=== PATIENT | male | born 1970 | race Caucasian/White ===

== ENCOUNTER 2016-12-05 07:38 | Observation (INO) ==
[2016-12-05] MEDS ORDERED: *HR* Promethazine 25 MG/ML VIAL IVP PRN ×3 (09:11→18:18)
[2016-12-05] MEDS ORDERED: Naloxone 0.4 MG/ML INJ IVP PRN ×2 (09:11→18:18)
[2016-12-05] MEDS ORDERED: Ondansetron 4 MG/2 ML VIAL IVP PRN ×2 (09:11→18:18)
[2016-12-05] MEDS ORDERED: *HR* HYDROmorphone (PF) 1 MG/ML SYRINGE IVP PRN ×2 (09:11→18:18)
[2016-12-05] MEDS ORDERED: Ketorolac 15 MG/ML VIAL IVP PRN ×2 (09:11→18:18)
[2016-12-05] MEDS ORDERED: 0.9 % Sodium Chloride 1,000 ML IVC SCH ×2 (09:15→18:18)
[2016-12-05] MEDS: *HR* Morphine 2 MG/ML SYRINGE IVP PRN ×2 (10:02→13:54)
--- NOTE | 2016-12-05 12:56 | Urology History & Physical ---
Date of Encounter: 12/05/16 Time of Encounter: 12:54 History of Present Illness Chief complaint: flank pain. HPI: Mr. Mendieta is a 45 year old male transferred from [facility] after 2 visits. 4 mm distal ureteral stone. +strep culture. still with pain but not as severe. no fever. hx of stones Past Med Surg Social Fam HX - Past Medical History Medical history: kidney stones Psychiatric history: no psych history - Past Surgical History Surgical History: orthopedic, other - Social History Smoking Status: Never smoker Smokeless Tobacco Status: Yes Alcohol use: occasionally Drug use: none Medications and Allergies HYDROcodone/Acet 5/325 mg [[place] 5-325 mg] 1 tab PO Q6H #14 tab 12/03/16 [Rx] Ondansetron ODT [Zofran ODT] 4 mg SL Q6HR #24 tab.rapdis 12/03/16 [Rx] Multivitamin [Multi-Day Vitamins] 1 each PO DAILY 12/05/16 [History] 3 Allergy/AdvReac Type Severity Reaction Status Date / Time No Known Allergies Allergy Verified 12/05/16 06:24 Review of Systems - Constitutional fatigue, no chills, no fever(s) - EENT Nose, mouth and throat: no dizziness - Cardiovascular no chest pain - Respiratory no cough - Gastrointestinal abdominal pain, nausea - Genitourinary flank pain - Musculoskeletal back pain - Integumentary no erythema - Neurological no confusion - Psychiatric no anxiety - Hematologic/Lymphatic no easy bleeding - Allergic/Immunologic no throat swelling Exam Initial Vital Signs Temp Pulse Resp BP Pulse Ox 98.2 F 57 18 126/73 93 12/05/16 09:18 12/05/16 09:18 12/05/16 09:18 12/05/16 09:18 12/05/16 09:18 - General physical appearance Present: well developed, no distress - Eyes Present: PERRL - ENT Present: normal nares - Neck Present: no masses - Respiratory Present: normal respiratory effort - Cardiovascular Cardiovascular exam IM: RRR - Abdomen Abdomen: Present: soft - Integumentary Present: no rash Urology Results - Labs All other labs normal.
[2016-12-05] MEDS ORDERED: Lidocaine -MPF 2% 2 ML VIAL ONE (15:08)
[2016-12-05] MEDS ORDERED: *HR* Propofol 200 MG/20 ML VIAL IVP ONE (15:08)
[2016-12-05] MEDS ORDERED: Dexamethasone 4 MG/ML VIAL ONE (15:08)
[2016-12-05] MEDS ORDERED: *HR* FentaNYL (PF) 100 MCG/2 ML VIAL ONE (15:08)
[2016-12-05] MEDS ORDERED: *HR* Midazolam HCl 2 MG/2 ML VIAL ONE (15:08)
[2016-12-05] MEDS ORDERED: Ondansetron 4 MG/2 ML VIAL ONE (15:08)
--- NOTE | 2016-12-05 15:31 | Anesthesia Evaluation PreOp ---
Date of Encounter: 12/05/16 Time of Encounter: 15:29 - Past History Planned Operation: Right Ureteroscopic Stone Extraction Cardiac History: Denies any Significant Hx Pulmonary History: Denies Any Significant HX OCCUPATIONAL THERAPIST AIDE History: Denies Any Significant HX Other Medical History: Other (obesity BMI=41.5) Anesthesia History: No Prior Anesthetic Complications, Past Anesthesia Alcohol Use: occasionally Drug use: none Medications and Allergies HYDROcodone/Acet 5/325 mg [[place] 5-325 mg] 1 tab PO Q6H #14 tab 12/03/16 [Rx] Ondansetron ODT [Zofran ODT] 4 mg SL Q6HR #24 tab.rapdis 12/03/16 [Rx] Multivitamin [Multi-Day Vitamins] 1 each PO DAILY 12/05/16 [History] 3 Allergy/AdvReac Type Severity Reaction Status Date / Time No Known Allergies Allergy Verified 12/05/16 06:24 - Meds/Allergy Pre-op Review Medications Reviewed: Yes Allergies Reviewed: Yes Beta Blockers on Current Med List: No Anesthesia Results - Labs Laboratory Tests 12/05/16 12/05/16 06:40 06:40 WBC 19.1 H Hgb 15.2 Hct 44.7 Plt Count 237 Sodium 142 Potassium 5.3 H BUN 14 Creatinine 1.41 H Anesthesia Exam Vital Signs/O2 Sat, Most Current Temp Pulse Resp BP Pulse Ox 98.2 F 54 20 127/75 98 12/05/16 10:57 12/05/16 10:57 12/05/16 10:57 12/05/16 10:57 12/05/16 10:57 Height: 5'11''/1.8 m Weight: 297 lbs/135 kg NPO (# of Hours): 8 Pain Scale: 3 (right flank) Pain Scale Used: Numeric (1 - 10) - HEENT Pupil (Motor): EOMI Mallampati: III Teeth: Normal Oral Opening: Greater than 3 - OCCUPATIONAL THERAPIST AIDE LOC: Oriented OCCUPATIONAL THERAPIST AIDE Motor: Normal RUE, Normal LUE, Normal RLE, Normal LLE, Normal Face OCCUPATIONAL THERAPIST AIDE Sensory: Normal: RUE, LUE, RLE, LLE, Face - Cardiac Rhythm: Regular Murmur: None - Pulmonary Breath Sounds: bilateral Clear Respiratory Effort: Symmetrical Anesthesia Assess/Plan ASA Score: 3 Modified [place] Scale for Level of Consciousness: Cooperative, oriented, and tranquil Anesthetic Plan: General Monitoring Plan: Standard Monitors Recovery Plan: PACU
[2016-12-05] MEDS ORDERED: *HR* Morphine 2 MG/ML SYRINGE IVP PRN ×2 (16:26→18:18)
--- NOTE | 2016-12-05 16:54 | Operative Note ---
Date of procedure: 12/05/16 Pre-op diagnosis: right distal ureteral stone 4 mm Post-op diagnosis: same Procedure: Right ureteroscopic stone extraction with holmium laser Right retrograde pyelogram Right ureteral stent placement Anesthesia: GETA Surgeon: Garo Navarro Estimated blood loss (cc): 0 Specimen: Right ureteral stone Condition: stable Disposition: PACU Procedure in Detail: PROCEDURE IN DETAIL: Patient was taken back to the operating room, positioned supine on the operating table. Anesthesia was applied without complication. They were moved into dorsal lithotomy. Careful attention was maintained to cushion all pressure points for patient's safety. They were prepped and draped in sterile fashion. Time-out was performed with the proper patient and procedure. A 17-[place] rigid cystoscope was inserted into the bladder without difficulty. Systematic examination of bladder revealed no abnormalities. The ureteral orifice was cannulated using a 5-[place] Citizen ureteral Catheter and a retrograde pyelogram was performed using Isovue. A filling defect was identified which corresponded to the stone. At that point, a zip wire was placed through the 5-[place] Citizen and confirmed in the renal pelvis with fluoroscopy. A semi-rigid ureteroscope was carefully inserted into the bladder and guided into the ureteral oriface. At that point, the stone was encountered and I felt that it required fragmentation for safe extraction. A 200 micron holmium laser fiber on a setting of 8 and 800 was used to fragment the stone into multiple pieces. The fragments were individually basketed out of the ureter with a 1.9 tipless basket. All stone in the ureter was removed. A 4.8 x 26 ureteral stent was placed over the zip wire under fluoroscopy without complication. The bladder was drained along with the stone fragments. They were collected and sent for stone analysis. The string was left attached to the stent and secured to the patient for easy removal in approximately 72 hours
--- NOTE | 2016-12-05 16:56 | Discharge Summary ---
Date of Encounter: 12/05/16 Time of Encounter: 16:54 - Discharge Diagnosis (1) Ureteral stone with hydronephrosis Priority: Primary Status: Resolved - Discharge Medications Prescriptions: HYDROcodone/Acet 5/325 mg [[place] 5-325 mg] 1 tab PO Q6H #14 tab Phenazopyridine HCl [Pyridium] 200 mg PO TIDAC #15 tab Sulfamethoxazole/Trimeth DS [Bactrim DS] 1 each PO BID #20 tablet Home Medications: HYDROcodone/Acet 5/325 mg [[place] 5-325 mg] 1 tab PO Q6H #14 tab 12/05/16 [Rx] Multivitamin [Multi-Day Vitamins] 1 each PO DAILY 12/05/16 [History] Phenazopyridine HCl [Pyridium] 200 mg PO TIDAC #15 tab 12/05/16 [Rx] Sulfamethoxazole/Trimeth DS [Bactrim DS] 1 each PO BID #20 tablet 12/05/16 [Rx] Allergies/Adverse Reactions: 3 Allergy/AdvReac Type Severity Reaction Status Date / Time No Known Allergies Allergy Verified 12/05/16 06:24 Date of admission: 12/05/16 08:59 Primary care physician: Panchito Ordonez DO Discharging clinician: Garo Navarro Anticipated date of discharge: 12/05/16 - Patient Status Disposition: Home, Self-Care Condition: Good Functional capacity at discharge: independent ambulation Overall status at discharge: patient is progressing back to baseline - Discharge Instructions Follow Up With: Panchito Ordonez DO [Primary Care Provider] - Garo Navarro MD [Partnered Physician] - (Thursday for stent removal) Additional Instructions: Expect stent discomfort including urgency, frequency, burning on urination, blood in the urine. This is normal. Call if excessive. Low-grade temperature would be considered normal. Call if high fever over 101 not controlled with ibuprofen or Tylenol Come to the office on Thursday for stent removal. - Diet and Activity Activity: increase activity as tolerated Diet: advance to your usual diet - Hospital Course Hospital course: Mr. Mendieta is a 45 year old male admitted with an obstructing ureteral stone. Successful stone extraction and stent placement. Plan to discharge postoperatively when vital signs are stable and symptoms including pain are well -controlled - Time Spent with Patient Total time spent providing and/or coordinating discharge services: Exam Initial Vital Signs Temp Pulse Resp BP Pulse Ox 98.2 F 57 18 126/73 93 12/05/16 09:18 12/05/16 09:18 12/05/16 09:18 12/05/16 09:18 12/05/16 09:18 - General physical appearance Present: well developed, no distress
--- NOTE | 2016-12-05 17:21 | Anesthesia Evaluation Post Op ---
Date of Encounter: 12/05/16 Time of Encounter: 17:20 - Vital Signs Vital Signs: Vital Signs/O2 Sat, Most Current Temp Pulse Resp BP Pulse Ox 97.0 F L 69 14 122/76 97 12/05/16 16:52 12/05/16 17:12 12/05/16 17:12 12/05/16 17:12 12/05/16 17:12 - Lungs Lungs: Clear Ascult./Percussion - Airway Airway: Non-obstructed - Cardiovascular Regular Rate, Baseline Rhythm - Mental Status Mental Status: Alert & Oriented, Answers Appropriately - Pain Pain Scale: 0 - Nausea Vomiting Nausea Vomiting: Not Present - Hydration Hydration: Ice chips - Discharge PostOp Status: Transfer Patient to floor
[2016-12-05] MEDS ORDERED: *HR* HYDROcodone/Acet 10/325 mg TABLET PO PRN (18:18)
[2016-12-05 21:17] VITALS: BP 110/65
== END 2016-12-05 21:05 | disposition home or self-care (01) ==
LOC: 3BNU
PROVIDERS: ADMIT Urology; ATTEND Urology